=== PATIENT | female | born 1980 | race Caucasian/White ===

== ENCOUNTER → 2018-12-29 | Outpatient (CLI) | payer OTHER ==
[2018-12-29 07:13] LABS: ABG BASE EXCESS -1.1 (-2.0-2.0); ABG HCO3 22.7 MEQ/L (22.0-26.0); ABG O2 SATURATION 98.3 % (95.0-99.0); ABG PARTIAL PRESSURE CO2 34.6 mmHg (35.0-45.0); ABG PARTIAL PRESSURE O2 117.7 mmHg (75.0-100.0); ABG STANDARD HCO3 23.6 MEQ/L (22.0-26.0); ABG TOTAL CO2 23.7 MEQ/L (22.0-29.0); ABG pH (ARTERIAL) 7.434 UNITS (7.350-7.450)
--- NOTE | 2018-12-29 07:36 | PFTRPT ---
Height: 61.00 Inches Weight: 152.00 Lbs BSA: 1.68 Diagnosis: R06.00 DATE OF PROCEDURE: 12/29/2018 ORDERED BY: Dr. Pang Spirometry: Pre and post bronchodilator study of excellent technical quality. Forced vital capacity normal. FEV1 in proportion. Obstructive index is, therefore, normal. Flow Volume Loop: Expiratory limb of the flow volume loop is normal. No significant bronchodilator response identified. Lung Volumes: Total lung capacity normal. Residual volume is in proportion. Diffusing Capacity: Diffusing capacity essentially normal. Hemoglobin: Hemoglobin mildly reduced at 11.7. Airway Mechanics: Airway resistance and conductance are normal. IMPRESSION: Essentially normal study except for mild anemia. Please correlate clinically. MTDD
== END ==
LOC: M CARPUL 06:41
PROVIDERS: ATTEND Internal Medicine Pulmonary Disease
DX: R06.00 Dyspnea, unspecified (principal)

== ENCOUNTER → 2018-12-30 | Outpatient (CLI) | payer OTHER ==
--- NOTE | 2018-12-30 22:08 | ECHO ---
DATE OF PROCEDURE: 12/30/2018 AGE: 38 GENDER: Female HEIGHT: 62 inches WEIGHT: 153 pounds BODY SURFACE AREA: 1.7 m2 PATIENT LOCATION: Outpatient REFERRING PHYSICIAN: Dr. Pang. INDICATION: Dyspnea. 2-D MEASUREMENTS: RV: 3.7 cm LV: 4.5 cm Septum: 0.9 cm Posterior wall: 0.9 cm Aortic root: 2.7 cm LA: 3.5 cm LVEF: 65% DOPPLER MEASUREMENTS: AV: 1.4 m/s LVOT: 1.1 m/s LVOT diameter: 2.0 cm MV-E: 83, A: 62, EA ratio: 1.4 Early mitral deceleration time: 144 ms E prime: 9.9, A prime: 8, E/E prime ratio: 8.4 PV: 1.1 m/s Pulmonary artery acceleration time: 130 ms PASP: 21 mmHg IVC: 1.5 cm COMMENTS: Normal sinus rhythm without intraventricular conduction disturbance. M-mode and two-dimensional echocardiography was performed with pulsed, continuous wave, color flow and tissue Doppler studies. Normal left ventricular size, wall thickness and wall motion. Normal left atrial size and Doppler assessment of LV diastolic function and estimated mean left atrial pressure. Normal right heart chamber sizes and motion and normal estimated pulmonary arterial pressure. Normal IVC size and collapse against an elevated central venous pressure. Normal-appearing aortic valve and function. Normal aortic root size. Normal-appearing mitral valvular apparatus without mitral valve prolapse, but mild posteriorly directed insufficiency (likely still physiologic). Normal appearing tricuspid valve with no more than trace insufficiency. No apparent intracardiac mass or pericardial effusion.
== END ==
LOC: M CARPUL 10:50
PROVIDERS: ATTEND Internal Medicine Pulmonary Disease
DX: R06.00 Dyspnea, unspecified (principal)

== ENCOUNTER 2022-07-05 09:13 | Emergency (ER) | payer BC ==
[~2022-07-05] VITALS: Ht 157.5 cm; Wt 69.0 kg
[~2022-07-05 09:13] MED LIST: CELE1CAP9 PO; IMAT100TAB PO; PEPC1TAB5 PO; PROC10TA5 PO
[2022-07-05] MEDS ORDERED: IMAT400T (09:25)
[2022-07-05 09:44] LABS: EOS # 0.1 10^3/uL (0.0-0.5); EOS % 4.7 % (0.0-3.0); HEMATOCRIT 36.8 % (36.0-47.0); HEMOGLOBIN 11.8 g/dl (12.0-15.5); LYMPH # 0.9 10^3/uL (1.5-5.0); LYMPH % 30.5 % (24.0-44.0); MEAN CORPUSCULAR HEMOGLOBIN 32.1 pg (27.0-33.0); MEAN CORPUSCULAR HGB CONC 32.1 g/dl (32.0-36.5); MONO # 0.2 10^3/uL (0.0-0.8); MONO % 8.1 % (2.0-8.0); NEUTROPHILS # 1.6 10^3/uL (1.5-8.5); NEUTROPHILS % 55.4 % (36.0-66.0); PLATELET COUNT, AUTOMATED 234 10^3/uL (150-450); RED BLOOD COUNT 3.68 10^6/uL (4.00-5.40)
[2022-07-05 10:24] LABS: CK-MB VALUE MASS < 1.0 NG/ML (<3.6); CPK CREATINE PHOSPHOKINASE 68 U/L (26-192); MB/CK RELATIVE INDEX 1.47 (< OR =4)
[2022-07-05 10:34] LABS: ALBUMIN 4.1 GM/DL (3.2-5.2); ALT/SGPT 20 U/L (12-78); BILIRUBIN,DIRECT 0.1 MG/DL (0.0-0.2); BILIRUBIN,TOTAL 0.5 MG/DL (0.2-1.0); BLOOD UREA NITROGEN 11 MG/DL (7-18); CALCIUM LEVEL 9.3 MG/DL (8.5-10.1); CARBON DIOXIDE LEVEL 27 MEQ/L (21-32); CHLORIDE LEVEL 105 MEQ/L (98-107); FREE T4 1.17 NG/DL (0.76-1.46); GLOMERULAR FILTRATION RATE > 60.0 (>58); GLUCOSE, FASTING 95 MG/DL (70-100); LIPASE 90 U/L (73-393); NT-PRO BNP 40 PG/ML (<125); POTASSIUM SERUM 4.2 MEQ/L (3.5-5.1); SODIUM LEVEL 137 MEQ/L (136-145); TOTAL PROTEIN 6.9 GM/DL (6.4-8.2)
[2022-07-05] MEDS ORDERED: PANTOPRAZOLE 40MG VIAL IV ONE (11:25)
[2022-07-05] MEDS ORDERED: NS 1,000 ML IV ONE (11:25)
[2022-07-05 11:27] LABS: HCG, SERUM QUALITATIVE NEGATIVE (NEGATIVE)
[2022-07-05] MEDS ORDERED: ISOVUE-370 76% 100ML VIAL As Ordered ONE (11:30)
[2022-07-05] MEDS ORDERED: GI COCKTAIL 50ML BTL(HYOSCYAMINE/MAALOX/LIDOCAINE VISCOUS)(1:3:1) PO ONE (12:40)
[2022-07-05] MEDS ORDERED: CARA1TAB6 PO (13:54)
[2022-07-05] MEDS ORDERED: PROT1TAB2 PO (13:54)
[2022-07-05 14:07] VITALS: BP 118/70
== END 2022-07-05 14:36 | disposition home or self-care (01) ==
LOC: M ED 09:13
DX: K29.00 Acute gastritis without bleeding (principal); C92.11 Chronic myeloid leukemia, BCR/ABL-positive, in remission; R94.31 Abnormal electrocardiogram [ECG] [EKG]; Z88.0 Allergy status to penicillin; Z88.1 Allergy status to other antibiotic agents; Z79.899 Other long term (current) drug therapy

== ENCOUNTER → 2022-10-30 | Outpatient (REF) | payer BC ==
[~2022-10-30] MED LIST changes: +CARA1TAB6 PO; +IMAT400T; +PROT1TAB2 PO
== END ==
LOC: M LAB REF 09:48
PROVIDERS: ATTEND Nurse Practitioner Family
DX: R19.7 Diarrhea, unspecified (principal)

== ENCOUNTER → 2022-10-31 | Outpatient (CLI) | payer BC | LOC: M LABSMTC 08:39 | PROVIDERS: ATTEND Anesthesiology | DX: Z01.812 Encounter for preprocedural laboratory examination (principal); Z20.822 Contact with and (suspected) exposure to COVID-19 ==

== ENCOUNTER 2022-11-05 12:29 | Day surgery (SDC) | payer BC ==
[~2022-11-05] VITALS: Ht 154.9 cm; Wt 64.1 kg
[~2022-11-05 12:29] MED LIST changes: +NS 1,000 ML IV ONE
[2022-11-05] MEDS ORDERED: LIDOCAINE 2% 100MG/5ML SDV (FOR ANES.) As Ordered ONE (14:33)
[2022-11-05] MEDS ORDERED: fentaNYL 100 MCG/2 ML INJECTION As Ordered ONE (14:33)
[2022-11-05] MEDS ORDERED: propofoL 200 MG/20 ML VIAL As Ordered ONE (14:38)
[2022-11-05 15:21] VITALS: BP 101/57
== END 2022-11-05 15:49 | disposition home or self-care (01) ==
LOC: M OPP 12:29
PROVIDERS: ATTEND Internal Medicine Gastroenterology
DX: K64.4 Residual hemorrhoidal skin tags (principal); K64.8 Other hemorrhoids; K52.9 Noninfective gastroenteritis and colitis, unspecified; K92.1 Melena; Z80.0 Family history of malignant neoplasm of digestive organs; K29.70 Gastritis, unspecified, without bleeding; K92.0 Hematemesis; D50.9 Iron deficiency anemia, unspecified; Z79.52 Long term (current) use of systemic steroids; Z79.899 Other long term (current) drug therapy; Z88.0 Allergy status to penicillin; Z88.1 Allergy status to other antibiotic agents; Z80.49 Family history of malignant neoplasm of other genital organs; Z80.8 Family history of malignant neoplasm of other organs or systems; Z80.3 Family history of malignant neoplasm of breast; Z92.21 Personal history of antineoplastic chemotherapy
CPT/HCPCS: 43239; 45380; 88305; J3010